=== PATIENT | female | born 1960 | race Caucasian/White ===

== ENCOUNTER 2023-09-23 05:25 | Inpatient (IN) | payer OTHER ==
[~2023-09-23] VITALS: Ht 167.6 cm; Wt 108.9 kg
[2023-09-23] MEDS ORDERED: ACETAMINOPHEN 500 MG TABLET ONE (05:41)
[2023-09-23] MEDS ORDERED: GABAPENTIN 300 MG CAPSULE ONE (05:44)
[2023-09-23] MEDS ORDERED: CEFAZOLIN SOD 2 GM in D5W 50 ML IV ONE (06:00)
[2023-09-23] MEDS: ACETAMINOPHEN 500 MG TABLET PO ONE (06:27)
[2023-09-23] MEDS: GABAPENTIN 300 MG CAPSULE PO ONE (06:27)
[2023-09-23] MEDS ORDERED: DEXAMETHASONE SOD PHOSPHATE 4 MG/ML VIAL ONE (07:00)
[2023-09-23] MEDS ORDERED: METOCLOPRAMIDE HCL 10 MG/2 ML VIAL IVP PRN (08:00)
[2023-09-23] MEDS ORDERED: LR 1,000 ML IV SCH (08:00)
[2023-09-23] MEDS ORDERED: HYDROmorphone 1 MG/ML INJ. CARTRIDGE IVP PRN ×2 (08:00)
[2023-09-23] MEDS ORDERED: MEPERIDINE HCL/PF 25 MG/ML DISP.SYRIN IVP PRN (08:00)
[2023-09-23] MEDS ORDERED: hydrALAZINE HCL 20 MG/ML VIAL IVP PRN (08:00)
[2023-09-23] MEDS ORDERED: MIDAZOLAM HCL 2 MG/2 ML VIAL (VERSED) IVP PRN (08:00)
[2023-09-23 11:03] VITALS: BP_SYST 112
[2023-09-23] MEDS: CEFEPIME 1 GM in D5W 50 ML IV SCH (11:30)
== END 2023-09-23 12:35 | disposition home or self-care (01) | DRG 470 ==
LOC: SMU 05:25
PROVIDERS: ADMIT Orthopaedic Surgery Sports Medicine; ATTEND Orthopaedic Surgery Sports Medicine
PROC: 0SRD0J9 Replacement of Left Knee Joint with Synthetic Substitute, Cemented, Open Approach (ICD-10-PCS; principal; 2023-09-23 07:07)
DX: M17.12 Unilateral primary osteoarthritis, left knee (principal)
CPT/HCPCS: 73560; 87081; 88305; 88311; 97110-GP; 97116-GP; 97530-GP; C1713; C1776; J0690; J0692; J1100; J2405; J3010; J3370; J3465; J3490; J7060; J7120